=== PATIENT | female | born 1960 | race Caucasian/White ===

== ENCOUNTER → 2017-04-12 | Outpatient (CLI) | payer OTHER ==
--- NOTE | ~2017-04-12 | EXE ---
[facility] [place] [employer] [place] [address] STRESS ECHOCARDIOGRAM Name: QUEENIELOS J Room #: REG [facility]#: [id number] Admission: 04/12/17 Attend Phys: Rene Erickson MD Discharge: Date of : 64 Date of Service: 04/12/17 1604 Report #: [id number] THIS REPORT FOR: //name// APPROVED REPORT Exam: Stress Echocardiogram Indication: Chest pain Stress Nurse: Lyndsay Hoskins RN Ht: 5 ft 4 in BP: 127/84 mmHg Procedure The patient underwent an Exercise Stress Test using the Shon Protocol. Blood pressure, heart rate, and EKG were monitored. An Echocardiogram was performed by mail carrier technician in four stages in quad fashion. At peak stress, four selected images were obtained and placed side by side with resting images for comparison. Stress Test Details Stress Test: Exercise stress testing was performed using a Shon protocol. HR Resting HR: 99 bpm Max Heart Rate (APMHR): 166 bpm Max HR Achieved: 169 bpm Target HR (85% APMHR): 141 bpm % of APMHR: 101 Recovery HR: 103 bpm HR response to stress: Normal HR response to stress BP Resting BP: 127/84 mmHg Max BP: 145/95 mmHg Recovery BP: 112/64 mmHg ECG Resting ECG: Sinus Rhythm, NSSTT changes Stress ECG: Sinus Rhythm, NSSTT changes ST Change: Non-ischemic Clinical Reason for Termination: Completed protocol Stress Symptoms: none Exercise duration: 9 min 41 sec Highest Stage Achieved: Stage 3: 3.4 mph at 14% grade. Exercise capacity: 11.70 METs [facility] [address] [place] [address] STRESS ECHOCARDIOGRAM Name: LOS JEROME Room #: REG [facility]#: [id number] Admission: 04/12/17 Attend Phys: Rene Erickson MD Discharge: Date of : 64 Date of Service: 04/12/17 1604 Report #: [id number] Pre-Stress Echo The resting Echocardiogram showed normal left ventricular contractility with an estimated Ejection Fraction of about 60-65%. Post-Stress Echo The stress Echocardiogram showed normal left ventricular contractility with an estimated Ejection Fraction of about >70%. Clinical No clinical or ECG evidence for ischemia. Conclusion Clinical Response: Non-ischemic Exercise Capacity: Average Stress ECG Response: Non-ischemic Stress Echo Images: Non-ischemic No clinical, EKG or echocardiographic evidence for ischemia. Other Information Study Quality: Good <Conclusion> No clinical, EKG or echocardiographic evidence for ischemia. <ELECTRONICALLY SIGNED> By: Rene Erickson MD 04/12/17 1604 1604 1604 Rene Erickson MD /INF
== END ==
LOC: CV 14:57
DX: R07.9 Chest pain, unspecified (principal); R06.02 Shortness of breath